=== PATIENT | female | born 1945 ===

== ENCOUNTER → 2017-07-10 | Outpatient (CLI) | payer MEDICARE, OTHER ==
[~2017-07-10] MED LIST: AMOX-559 PO; BENZ200C15 PO; CALC600T63 PO; CEPH-13 PO; CHOL200038 PO; CYAN500T38 PO; CYCL-277 PO; DICY20TA96 PO; DOXY-179 PO; FLU180SY9 IM; FURO-45 PO; GABA-549 PO; ISOS30TA54 PO; LISI-374 PO; LISI20TA29 PO; LOSA100T67 PO; LOSA50TA72 PO; LOVA20TA99 PO; METH4TAB66 PO; METO-257 PO; METO100T20 PO; MULT1TAB64 PO; NITR-1 PO; NYST15CR32 TP; NYST15PO4 TP; OMEP40CA48 PO; ONDA4TAB97 PO; OXYC-865 PO; PNEI IJ; PNEU0.5D3 IM; POTA-23 PO; SERT-173 PO; SPIR25TA78 PO; SPIR50TA31 PO; SULF-198 PO; TIZA-128 PO; TRAM-420 PO; TRAZ150T8 PO; VARI50KI IM; ZOST19404 SQ
[2017-07-10 14:47] LABS: PLATELET COUNT, AUTOMATED 320 K/uL (150-450)
[2017-07-10 14:49] LABS: INR 0.93
[2017-07-10 15:06] LABS: LDL CHOLESTEROL 80 mg/dl
== END ==
LOC: LAB 13:31
PROVIDERS: ATTEND Nurse Practitioner Family
DX: E78.5 Hyperlipidemia, unspecified (principal); I10 Essential (primary) hypertension; R74.8 Abnormal levels of other serum enzymes; D53.9 Nutritional anemia, unspecified; R30.0 Dysuria
CPT/HCPCS: 36415; 81001; 82040; 82247; 82310; 82374; 82435; 82465; 82565; 82947; 83718; 84075; 84132; 84155; 84295; 84443; 84450; 84460; 84478; 84520; 85025; 85610

== ENCOUNTER 2017-09-11 17:12 | Emergency (ER) | payer MEDICARE, OTHER ==
--- NOTE | 2017-09-11 17:27 | EKG ---
[place] [facility] [place]IENT NAME: FAVIAN BACON : [id number] MR: [id number] V: [id number] EXAM DATE: ORDERING PHYSICIAN: RUDDY ORTIZ TECHNOLOGIST: ELLYN Aguilar Reason : Blood Pressure : / mmHG Vent. Rate : 078 BPM Atrial Rate : 078 BPM P-R Int : 172 ms QRS Dur : 092 ms QT Int : 418 ms P-R-T Axes : 030 009 053 degrees QTc Int : 476 ms Normal sinus rhythm Inferior-posterior infarct (cited on or before 11-SEP-2017) Abnormal ECG When compared with ECG of 11-SEP-2017 15:08, lateral ST depression is now improved Confirmed by AMERICO VASQUEZ ([id number]) on 09/11/2017 8:44:02 PM Referred By: Confirmed By:AMERICO VASQUEZ
[2017-09-11] MEDS ORDERED: ASPIRIN 81 MG CHEW ONE (17:33)
[2017-09-11] MEDS ORDERED: ASPIRIN 81 MG CHEW PO ONE (17:35)
[2017-09-11 17:47] LABS: PLATELET COUNT, AUTOMATED 359 K/uL (150-450)
--- NOTE | 2017-09-11 17:47 | ER Report ---
History and Physical Time Seen By MD: 17:20 Hx. of Stated Complaint: ABNORMAL EKG, CP 6 DAYS, TODAY DENIES SYMPOMS EXCEPT DIZZINESS HPI/ROS CHIEF COMPLAINT: Chest pain. HISTORY OF PRESENT ILLNESS: Pt presents after having chest pain 5 d ago; states the pain was crushing, radiated to jaw, left arm, associated with significant difficulty breathing, lasted 3-4 hours at a time, and was relieved by rest. She states that the last episode of any discomfort was > 48 hours ago. She denies pain or shortness of breath, nausea, diaphoresis or other symptoms currently. Was sent here by clinic due to abnl ekg with inf elevations that has changed since 2016. She has not taken asa today. REVIEW OF SYSTEMS: Constitutional: No fever, no chills. Eyes: No discharge. ENT: No sore throat. Respiratory: As above. Cardiac: As above. Gastrointestinal: No abdominal pain, no vomiting. Genitourinary: No hematuria. Musculoskeletal: No back pain. Skin: No rashes. Neurological: No headache. Remainder of the 14 system rev: Yes Allergies: Coded Allergies: meperidine (Verified Allergy, Unknown, 05/20/16) vomit cephalexin (Verified Adverse Reaction, Mild, NAUSEA/VOMITING, 02/06/17) sulfamethoxazole (Verified Adverse Reaction, Unknown, NAUSEA/VOMITING, ) trimethoprim (Verified Adverse Reaction, Unknown, NAUSEA/VOMITING, ) Uncoded Allergies: [place] (Allergy, Unknown, NAUSEA/VOMITING, 07/29/14) Rapid Heart beat Home Meds Active Scripts Omeprazole (OMEPRAZOLE) 40 Mg Capsule.dr, 1 TAB PO QDAY, #90 CAP 1 Refill Prov:RUDDY ORTIZ APRN-C 09/11/17 Valacyclovir Hcl (VALACYCLOVIR) 1,000 Mg Tablet, 1 TAB PO TID, #30 TAB 0 Refills Prov:RUDDY ORTIZ APRN-C 09/11/17 Metoprolol Succinate (METOPROLOL SUCCINATE) 200 Mg Tab.er.24h, 1 TAB PO QDAY, # 90 TAB 0 Refills Prov:RUDDY ORTIZ APRNP-C 07/12/17 Pravastatin Sodium (PRAVASTATIN SODIUM) 20 Mg Tablet, 1 TAB PO QDAY, #90 TAB 0 Refills Prov:RUDDY ORTIZ APRN [facility] 07/12/17 Trazodone Hcl (TRAZODONE HCL) 150 Mg Tablet, 1 TAB PO QHS Y for INSOMNIA, #90 TAB 1 Refill Prov:RUDDY ORTIZ APRN [facility] 07/10/17 Isosorbide Mononitrate (ISOSORBIDE MONONITRATE ER) 30 Mg Tab.er.24h, 1 TAB PO DAILY, #90 TAB 1 Refill Prov:RUDDY ORTIZ APRTena JERRYP-C 07/10/17 Varicella-Zoster Ge/As01b/Pf (Shingrix Vial Kit) 50 Mcg/0.5 Ml Kit, 0.5 ML IM ONCE, #1 EACH 1 Refill Prov:RUDDY ORTIZ VANESSA JERRYP-C 07/10/17 Gabapentin (GABAPENTIN) 300 Mg Capsule, 1 TAB PO TID, #270 CAPSULE 1 Refill Prov:RUDDY ORTIZ VANESSA JERRYP-C 01/08/17 Reported Medications Calcium Carbonate (CALCIUM) 500 Mg Tablet, 500 MG PO 09/11/17 Multivitamin (MULTI VITAMIN DAILY) 1 Each Tablet, 1 TAB PO DAILY 07/29/14 Past Medical/Surgical History htn, chol fam hx of dm, acs no prior acs Reviewed Nurses Notes: Yes Smoking Status: Never Smoker Exposure to Second Hand Smoke?: No Hx Substance Use Disorder: No Hx Alcohol Use: Yes (pt admits to 1-3 drinks daily) Family History of: Diabetes, Cardiac Constitutional Vital Sign - Last 24 Hours 09/11/17 09/11/17 09/11/17 09/11/17 17:18 17:18 17:30 17:42 Temp 99.1 Pulse 80 76 Resp 16 B/P (MAP) 142/94 142/94 (110) 164/97 (119) Pulse Ox 93 93 O2 Delivery Room Air 09/11/17 09/11/17 09/11/17 09/11/17 18:00 18:12 18:30 18:42 Pulse 74 76 B/P (MAP) 155/88 (110) 153/92 (112) Pulse Ox 93 95 09/11/17 09/11/17 09/11/17 09/11/17 18:47 19:00 19:05 19:05 Pulse 75 75 75 B/P (MAP) 150/91 (110) Pulse Ox 96 95 95 09/11/17 09/11/17 09/11/17 09/11/17 19:49 19:49 19:50 20:00 Pulse 74 Resp 19 B/P (MAP) 143/121 (128) 143/121 (128) 145/87 (106) Pulse Ox 92 09/11/17 09/11/17 09/11/17 09/11/17 20:00 20:05 20:05 20:10 Pulse 70 70 71 Resp 14 14 15 B/P (MAP) 145/87 (106) Pulse Ox 97 97 98 Physical Exam General Appearance: [The patient is alert, has no immediate need for airway protection and no signs of toxicity.] [ ] Eyes: Pupils equal and round no pallor or injection. ENT, Mouth: Mucous membranes are moist. Respiratory: There are no retractions, lungs are clear to auscultation. Cardiovascular: Regular rate and rhythm. no m/r/g. No carotid bruits Gastrointestinal: Abdomen is soft and non tender, no masses, bowel sounds normal. Neurological: [ ] Skin: Warm and dry, no rashes. Of note, has paronychia that are draining on both l and r hand, without splinter hemorrhages, oslers nodes Musculoskeletal: Neck is supple non tender. Extremities are nontender, nonswollen and have full range of motion. [ ] DIFFERENTIAL DIAGNOSIS: After history and physical exam differential diagnosis was considered for chest pain including but not limited to myocardial ischemia, pericarditis pulmonary embolus, chest wall pain, pleural inflammation and pulmonary infectious causes, endocarditis, aortic dissection. High pretest prob for acs Medical Decision Making Data Points Result Diagram: 09/11/17 1730 09/11/17 1730 Laboratory Hematology Test 09/11/17 17:30 Red Blood Count 3.86 M/uL (4.17-5.56) Mean Corpuscular Volume 91.4 fL (80.0-96.0) Mean Corpuscular Hemoglobin 31.0 pg (26.0-33.0) Mean Corpuscular Hemoglobin Concent 33.9 g/dL (32.0-36.0) Red Cell Distribution Width 15.5 % (11.5-14.5) Mean Platelet Volume 7.4 fL (7.2-11.1) Neutrophils (%) (Auto) 72.0 % (39.4-72.5) Lymphocytes (%) (Auto) 18.7 % (17.6-49.6) Monocytes (%) (Auto) 4.8 % (4.1-12.4) Eosinophils (%) (Auto) 3.1 % (0.4-6.7) Basophils (%) (Auto) 1.4 % (0.3-1.4) Nucleated RBC Relative Count (auto) 0.0 /100WBC Neutrophils # (Auto) 6.0 K/uL (2.0-7.4) Lymphocytes # (Auto) 1.6 K/uL (1.3-3.6) Monocytes # (Auto) 0.4 K/uL (0.3-1.0) Eosinophils # (Auto) 0.3 K/uL (0.0-0.5) Basophils # (Auto) 0.1 K/uL (0.0-0.1) Nucleated RBC Absolute Count (auto) 0.00 K/uL Prothrombin Time 12.9 seconds (12.0-14.4) Prothromb Time International Ratio 0.97 Activated Partial Thromboplast Time 26 seconds (23-35) D-Dimer Quantitative (PE/DVT) 1.57 ug/ml (0-0.50) Sodium Level 131 mmol/L (137-145) Potassium Level 3.6 mmol/L (3.5-5.0) Chloride Level 95 mmol/L (98-107) Carbon Dioxide Level 24 mmol/L (22-31) Blood Urea Nitrogen 15 mg/dl (7-18) Creatinine 1.10 mg/dl (0.52-1.04) Glomerular Filtration Rate Calc 49.1 Random Glucose 92 mg/dl (75-110) Calcium Level 9.1 mg/dl (8.4-10.2) Total Bilirubin 0.3 mg/dl (0.2-1.3) Aspartate Amino Transf (AST/SGOT) 22 U/L (0-35) Alanine Aminotransferase (ALT/SGPT) 21 U/L (0-56) Alkaline Phosphatase 161 U/L (0-126) Troponin I 3.550 ng/ml B-Type Natriuretic Peptide 2020 pg/ml (0-100) Total Protein 7.5 g/dl (6.3-8.2) Albumin 3.7 g/dl (3.5-5.0) Chemistry Test 09/11/17 17:30 White Blood Count 8.3 k/uL (4.5-11.0) Red Blood Count 3.86 M/uL (4.17-5.56) Hemoglobin 12.0 g/dL (12.0-16.0) Hematocrit 35.3 % (34.0-47.0) Mean Corpuscular Volume 91.4 fL (80.0-96.0) Mean Corpuscular Hemoglobin 31.0 pg (26.0-33.0) Mean Corpuscular Hemoglobin Concent 33.9 g/dL (32.0-36.0) Red Cell Distribution Width 15.5 % (11.5-14.5) Platelet Count 359 K/uL (150-450) Mean Platelet Volume 7.4 fL (7.2-11.1) Neutrophils (%) (Auto) 72.0 % (39.4-72.5) Lymphocytes (%) (Auto) 18.7 % (17.6-49.6) Monocytes (%) (Auto) 4.8 % (4.1-12.4) Eosinophils (%) (Auto) 3.1 % (0.4-6.7) Basophils (%) (Auto) 1.4 % (0.3-1.4) Nucleated RBC Relative Count (auto) 0.0 /100WBC Neutrophils # (Auto) 6.0 K/uL (2.0-7.4) Lymphocytes # (Auto) 1.6 K/uL (1.3-3.6) Monocytes # (Auto) 0.4 K/uL (0.3-1.0) Eosinophils # (Auto) 0.3 K/uL (0.0-0.5) Basophils # (Auto) 0.1 K/uL (0.0-0.1) Nucleated RBC Absolute Count (auto) 0.00 K/uL Prothrombin Time 12.9 seconds (12.0-14.4) Prothromb Time International Ratio 0.97 Activated Partial Thromboplast Time 26 seconds (23-35) D-Dimer Quantitative (PE/DVT) 1.57 ug/ml (0-0.50) Glomerular Filtration Rate Calc 49.1 Calcium Level 9.1 mg/dl (8.4-10.2) Total Bilirubin 0.3 mg/dl (0.2-1.3) Aspartate Amino Transf (AST/SGOT) 22 U/L (0-35) Alanine Aminotransferase (ALT/SGPT) 21 U/L (0-56) Alkaline Phosphatase 161 U/L (0-126) Troponin I 3.550 ng/ml B-Type Natriuretic Peptide 2020 pg/ml (0-100) Total Protein 7.5 g/dl (6.3-8.2) Albumin 3.7 g/dl (3.5-5.0) Coagulation Test 09/11/17 17:30 Prothrombin Time 12.9 seconds Prothromb Time International Ratio 0.97 Activated Partial Thromboplast Time 26 seconds D-Dimer Quantitative (PE/DVT) 1.57 ug/ml Microbiology Microbiology Date/Time Source Procedure Growth Status 09/11/17 18:15 Blood Blood Culture - Preliminary NO GROWTH AFTER 1 DAY, REINCUBATED Resulted 09/11/17 18:11 Blood Blood Culture - Preliminary NO GROWTH AFTER 1 DAY, REINCUBATED Resulted EKG/Imaging EKG Interpretation 12 lead EKG: Rhythm: normal sinus rhythm rate 78 [place]: normal QRS: normal ST segments: st elevations iii, avf, < 1mm; st depressions 1/avl, t wave inversions t2-5 changed compared to 2016. No change compared to office ekg today [ ] Monitor Interpretation: Normal Sinus Rhythm Imaging X-ray: chest was obtained. I viewed the images myself on the PACS system. My interpretation of the images is: nacpd. The radiologist interpretation had no clinically significant variation from this interpretation. ED Course/Re-evaluation ED Course Initial hx and ekg concerning for acs without current symptoms so not indicated for emergent catheterization. Given dyspnea, will screen for pe, consider but doubt aortic dissection Will obtain trop, consult cardiology as appropriate and monitor for dev of symptoms. ASA adminsitered in ED; initiated heparin and [place] [facility] [place] and will plan for cath in AM unless pt develops chest pain/anginal symptoms or further dynamic changes. Pt aware of risks/benefits of transport and agrees to transport to cardiology. Re-evaluation Pt remains pain free throughout stay in ED Decision to Disposition Date: Sep 11, 2017 Decision to Disposition Time: 18:34 Critical Care Time I spent a total of 45 min of critical care time in obtaining history, performing a physical exam, bedside monitoring of interventions, collecting and interpreting tests and discussion with consultants but not including time spent performing procedures. Transfer Facility [facility]; accepting Dr. Guzmán (hosp)/ Felix ( literacy specialist) Depart Departure Latest Vital Signs Vital Signs Date Time Temp Pulse Resp B/P (MAP) Pulse Ox O2 Delivery O2 Flow Rate FiO2 09/11/17 20:10 71 15 98 09/11/17 20:00 145/87 (106) 09/11/17 17:18 99.1 Room Air Impression: Primary Impression: NSTEMI (non-ST elevated myocardial infarction) Condition: Condition Unchanged Disposition: XFER TO ACUTE CARE HOSPITAL Referrals: RUDDY ORTIZ APRN [facility] (PCP) SHAUN POPE MD Sep 11, 2017 17:47
[2017-09-11 18:00] LABS: INR 0.97
--- NOTE | 2017-09-11 18:12 | RADIOLOGY IMAGING REPORT ---
FACILITY: [facility] PATIENT NAME: Jenni Solorio : 1945 MR: [id number] V: [id number] EXAM DATE: ORDERING PHYSICIAN: SHAUN POPE TECHNOLOGIST: [place] [facility] [place] Patient: Jenni Solorio : 1945 Visit/Account:[id number] Date of Sevice: 09/11/2017 CHEST SINGLE AP HISTORY: Chest pain. COMPARISON: Chest x-ray March 29, 2015. FINDINGS: Cardiomediastinal contours: The heart is mildly enlarged. Lungs and pleura: Lung volumes are low, but there is no infiltrate. There is a calcified granulomata in the right upper lobe that is stable. Bones/soft tissues: There are bilateral pericapsular calcified breast implants. IMPRESSION: 1. Low lung volumes but no active disease in the chest. Old granulomatous disease as described above. Report Dictated By: Syed Serrano MD at 09/11/2017 6:07 PM Report E-Signed By: Syed Serrano MD at 09/11/2017 6:08 PM WSN:[id number]
[2017-09-11] MEDS ORDERED: TICAGRELOR 90 MG TABLET PO STA (18:24)
[2017-09-11] MEDS ORDERED: HEPARIN* SOD/D5W 25000 U/500ML 500 ML IV ONE (18:24)
[2017-09-11] MEDS ORDERED: HEPARIN (PORC) 5000 UN/ML VIAL IVP ONE (18:25)
[2017-09-11 20:00] VITALS: BP 145/87
== END 2017-09-11 20:30 | disposition short-term general hospital (02) ==
LOC: ER 17:25
DX: I21.4 Non-ST elevation (NSTEMI) myocardial infarction (principal)
CPT/HCPCS: 36415; 71045; 83880; 84484; 85025; 85379; 85610; 85730; 87040; 93005; 96361; 96374; 99291; A9270; J1644; 82040; 82247; 82310; 82374; 82435; 82565; 82947; 84075; 84132; 84155; 84295; 84450; 84460; 84520

== ENCOUNTER → 2017-09-11 | Outpatient (CLI) | payer MEDICARE, OTHER ==
[~2017-09-11] MED LIST changes: +CALC500T6 PO; +METO200T12 PO; +PRAV20TA66 PO; -SPIR25TA78 PO; +SPIR25TA80 PO; -SPIR50TA31 PO; +SPIR50TA33 PO; +VALA100059 PO
--- NOTE | 2017-09-11 17:30 | EKG ---
FACILITY: [facility] - [place] PATIENT NAME: FAVIAN BACON : [id number] MR: [id number] V: [id number] EXAM DATE: ORDERING PHYSICIAN: RUDDY ORTIZ TECHNOLOGIST: DANAE Aguilar Reason : CHEST PAIN Blood Pressure : / mmHG Vent. Rate : 071 BPM Atrial Rate : 071 BPM P-R Int : 166 ms QRS Dur : 094 ms QT Int : 420 ms P-R-T Axes : 046 011 088 degrees QTc Int : 456 ms Normal sinus rhythm Inferior-posterior infarct , age undetermined possibly new? ST and T wave abnormality, consider lateral ischemia Abnormal ECG When compared with ECG of 29-MAR-2015 09:37, Inferior-posterior infarct is now present ST now depressed in Anterolateral leads Nonspecific T wave abnormality now evident in Inferior leads T wave inversion more evident in Anterolateral leads Confirmed by EMILIO SAHNI ([id number]) on 09/12/2017 1:46:41 PM Referred By: ANGEL Confirmed By:EMILIO SAHNI
== END ==
LOC: LAB 16:02
PROVIDERS: ATTEND Nurse Practitioner Family
DX: Z02.9 Encounter for administrative examinations, unspecified (principal)

== ENCOUNTER → 2017-09-11 | Outpatient (CLI) | payer MEDICARE, OTHER | LOC: AMB 20:10 | PROVIDERS: ATTEND Nurse Practitioner | DX: I21.4 Non-ST elevation (NSTEMI) myocardial infarction (principal) | CPT/HCPCS: A0425; A0426 ==

== ENCOUNTER 2017-09-26 12:04 | Emergency (ER) | payer MEDICARE, OTHER ==
[~2017-09-26 12:04] MED LIST changes: +ASPI-1471 PO; +ATOR-1 PO; +CLOP75TA PO; +FAMO-67 PO; +LISI2.5T60 PO
[2017-09-26] MEDS ORDERED: ASPIRIN 81 MG CHEW PO ONE ×2 (12:25→12:35)
[2017-09-26] MEDS ORDERED: NITROGLYCERIN 0.4 MG SUBL SL ONE (12:25)
--- NOTE | 2017-09-26 12:27 | EKG ---
FAC[place] [facility] [place]IENT NAME: FAVIAN BACON : [id number] MR: [id number] V: [id number] EXAM DATE: ORDERING PHYSICIAN: MERLIN MARKHAM TECHNOLOGIST: ELLYN Aguilar Reason : CP Blood Pressure : / mmHG Vent. Rate : 087 BPM Atrial Rate : 087 BPM P-R Int : 130 ms QRS Dur : 082 ms QT Int : 404 ms P-R-T Axes : 028 004 -20 degrees QTc Int : 486 ms Normal sinus rhythm Inferior infarct (cited on or before 11-SEP-2017) T inversion consistent with inferior ischemia vs normal variant When compared with ECG of 11-SEP-2017 17:24, Nonspecific T wave abnormality has replaced inverted T waves in Anterior leads More pronounced T wave inversion noted today. Confirmed by AMERICO VASQUEZ ([id number]) on 09/26/2017 2:28:56 PM Referred By: RASHI Confirmed By:AMERICO VASQUEZ
--- NOTE | 2017-09-26 12:30 | ER Report ---
History and Physical Time Seen By MD: 12:20 Hx. of Stated Complaint: pt reports mi 2 weeks ago. states she started having numbness in L arm with stabbing pains in L chest with SOB HPI/ROS CHIEF COMPLAINT: Chest pain HISTORY OF PRESENT ILLNESS: Patient is a 8-year-old female comes emergency Department today with complaint of left arm pressure and sharp stabbing pain or chest patient had a acute myocardial infarction approximately 12-14 days prior to presentation when she was seen here transferred to an outside facility were 2 stents were placed patient describes that episode as a heaviness pressure or crushing sensation which is different than what she has today but the left arm sensation is similar patient also has been short of breath the last 3-4 days. Patient denies any abdominal pain nausea vomiting diarrhea fever chills patient spoke to her model maker fiberglass was advised not to take any medications that she received aspirin on arrival ACS protocol in place patient has no additional complaints noted REVIEW OF SYSTEMS: Respiratory: No cough, no dyspnea. Cardiovascular: Chest pain no palpitations Gastrointestinal: No vomiting, no abdominal pain. Musculoskeletal: No back pain. Remainder of the 14 system rev: Yes Allergies: Coded Allergies: meperidine (Verified Allergy, Unknown, 09/26/17) vomit cephalexin (Verified Adverse Reaction, Mild, NAUSEA/VOMITING, 09/26/17) sulfamethoxazole (Verified Adverse Reaction, Unknown, NAUSEA/VOMITING, 09/26) trimethoprim (Verified Adverse Reaction, Unknown, NAUSEA/VOMITING, 09/26/17) Uncoded Allergies: [place]in (Allergy, Unknown, NAUSEA/VOMITING, 07/29/14) Rapid Heart beat Home Meds Active Scripts Furosemide (FUROSEMIDE) 20 Mg Tablet, 1 TAB PO DAILY, #3 TAB 0 Refills Prov:RUDDY ORTIZ APRNP-C 09/21/17 Valacyclovir Hcl (VALACYCLOVIR) 1,000 Mg Tablet, 1 TAB PO TID, #30 TAB 0 Refills Prov:RUDDY ORTIZ APRNP-C 09/11/17 Metoprolol Succinate (METOPROLOL SUCCINATE) 200 Mg Tab.er.24h, 1 TAB PO QDAY, # 90 TAB 0 Refills Prov:RUDDY ORTIZ APRN DESULFURIZER HAND-C 07/12/17 Gabapentin (GABAPENTIN) 300 Mg Capsule, 1 TAB PO TID, #270 CAPSULE 1 Refill Prov:RUDDY ORTIZ APRN-C 01/08/17 Reported Medications Famotidine (FAMOTIDINE) 20 Mg Tablet, 1 TAB PO DAILY 09/21/17 Clopidogrel Bisulfate (CLOPIDOGREL) 75 Mg Tablet, 1 TAB PO QDAY, TAB 09/21/17 Lisinopril (LISINOPRIL) 2.5 Mg Tablet, 1 TAB PO QDAY 09/21/17 Atorvastatin Calcium (ATORVASTATIN CALCIUM) 80 Mg Tablet, 1 TAB PO QDAY, TAB 09/21/17 Aspirin (ASPIR 81) 81 Mg Tablet.dr, 1 TAB PO QDAY, TAB 09/21/17 Calcium Carbonate (CALCIUM) 500 Mg Tablet, 500 MG PO 09/11/17 Multivitamin (MULTI VITAMIN DAILY) 1 Each Tablet, 1 TAB PO DAILY 07/29/14 Discontinued Scripts Omeprazole (OMEPRAZOLE) 40 Mg Capsule.dr, 1 TAB PO QDAY, #90 CAP 1 Refill Prov:RUDDY ORTIZ APRN-Kat 09/11/17 Pravastatin Sodium (PRAVASTATIN SODIUM) 20 Mg Tablet, 1 TAB PO QDAY, #90 TAB 0 Refills Prov:RUDDY ORTIZ APRN-Kat 07/12/17 Trazodone Hcl (TRAZODONE HCL) 150 Mg Tablet, 1 TAB PO QHS Y for INSOMNIA, #90 TAB 1 Refill Prov:RUDDY ORTIZ APRN-Kat 07/10/17 Isosorbide Mononitrate (ISOSORBIDE MONONITRATE ER) 30 Mg Tab.er.24h, 1 TAB PO DAILY, #90 TAB 1 Refill Prov:RUDDY ORTIZ APRN-Kat 07/10/17 Varicella-Zoster Ge/As01b/Pf (Shingrix Vial Kit) 50 Mcg/0.5 Ml Kit, 0.5 ML IM ONCE, #1 EACH 1 Refill Prov:RUDDY ORTIZ APRN-Kat 07/10/17 Reviewed Nurses Notes: Yes Old Medical Records Reviewed: Yes Smoking Status: Never Smoker Exposure to Second Hand Smoke?: No Hx Substance Use Disorder: No Hx Alcohol Use: Yes (pt admits to 1-3 drinks daily) Constitutional Vital Sign - Last 24 Hours 09/26/17 09/26/17 09/26/17 09/26/17 12:07 12:15 12:19 12:39 Temp 97.6 Pulse 92 87 Resp 16 36 B/P (MAP) 186/87 186/87 (120) 168/84 (112) Pulse Ox 95 96 O2 Delivery Room Air 09/26/17 09/26/17 09/26/17 09/26/17 12:44 12:47 12:49 12:54 Pulse 98 88 91 Resp 22 24 18 B/P (MAP) 121/76 (91) 128/78 (95) Pulse Ox 91 92 90 09/26/17 09/26/17 09/26/17 09/26/17 12:59 13:00 13:02 13:04 Pulse 90 84 Resp 24 25 B/P (MAP) 90/60 (70) 140/77 (98) Pulse Ox 91 91 09/26/17 09/26/17 09/26/17 09/26/17 13:09 13:24 13:30 13:39 Pulse 81 85 79 Resp 18 29 15 B/P (MAP) 160/95 (116) Pulse Ox 92 93 94 09/26/17 09/26/17 09/26/17 09/26/17 13:44 13:59 14:00 14:14 Pulse 79 86 83 Resp 16 23 18 B/P (MAP) 142/85 (104) Pulse Ox 93 92 92 09/26/17 14:30 B/P (MAP) 154/86 (108) Physical Exam General Appearance: The patient is alert, has no immediate need for airway protection and no current signs of toxicity. [ ] Eyes: Pupils equal and round no injection. Respiratory: Chest is non tender, lungs are clear to auscultation. Cardiac: regular rate and rhythm [ ] Gastrointestinal: Abdomen is soft and non tender, no masses, bowel sounds normal. Musculoskeletal: Neck: Neck is supple and non tender. Extremities have full range of motion and are non tender. Skin: No rashes or lesions. [ ] DIFFERENTIAL DIAGNOSIS: After history and physical exam differential diagnosis was considered for acute myocardial infarction acute coronary syndrome stent abnormality or dissection Medical Decision Making Data Points Result Diagram: 09/26/17 1215 09/26/17 1215 Laboratory Hematology Test 09/26/17 12:15 Red Blood Count 3.79 M/uL (4.17-5.56) Mean Corpuscular Volume 92.7 fL (80.0-96.0) Mean Corpuscular Hemoglobin 31.7 pg (26.0-33.0) Mean Corpuscular Hemoglobin Concent 34.1 g/dL (32.0-36.0) Red Cell Distribution Width 16.9 % (11.5-14.5) Mean Platelet Volume 7.6 fL (7.2-11.1) Neutrophils (%) (Auto) 71.1 % (39.4-72.5) Lymphocytes (%) (Auto) 18.3 % (17.6-49.6) Monocytes (%) (Auto) 5.5 % (4.1-12.4) Eosinophils (%) (Auto) 4.0 % (0.4-6.7) Basophils (%) (Auto) 1.1 % (0.3-1.4) Nucleated RBC Relative Count (auto) 0.1 /100WBC Neutrophils # (Auto) 5.3 K/uL (2.0-7.4) Lymphocytes # (Auto) 1.4 K/uL (1.3-3.6) Monocytes # (Auto) 0.4 K/uL (0.3-1.0) Eosinophils # (Auto) 0.3 K/uL (0.0-0.5) Basophils # (Auto) 0.1 K/uL (0.0-0.1) Nucleated RBC Absolute Count (auto) 0.01 K/uL D-Dimer Quantitative (PE/DVT) 1.13 ug/ml (0-0.50) Sodium Level 136 mmol/L (137-145) Potassium Level 3.6 mmol/L (3.5-5.0) Chloride Level 97 mmol/L (98-107) Carbon Dioxide Level 27 mmol/L (22-31) Blood Urea Nitrogen 7 mg/dl (7-18) Creatinine 0.80 mg/dl (0.52-1.04) Glomerular Filtration Rate Calc > 60.0 Random Glucose 107 mg/dl (75-110) Calcium Level 8.7 mg/dl (8.4-10.2) Total Bilirubin 0.7 mg/dl (0.2-1.3) Aspartate Amino Transf (AST/SGOT) 33 U/L (0-35) Alanine Aminotransferase (ALT/SGPT) 22 U/L (0-56) Alkaline Phosphatase 171 U/L (0-126) Troponin I 0.069 ng/ml Total Protein 7.9 g/dl (6.3-8.2) Albumin 4.0 g/dl (3.5-5.0) Chemistry Test 09/26/17 12:15 White Blood Count 7.5 k/uL (4.5-11.0) Red Blood Count 3.79 M/uL (4.17-5.56) Hemoglobin 12.0 g/dL (12.0-16.0) Hematocrit 35.1 % (34.0-47.0) Mean Corpuscular Volume 92.7 fL (80.0-96.0) Mean Corpuscular Hemoglobin 31.7 pg (26.0-33.0) Mean Corpuscular Hemoglobin Concent 34.1 g/dL (32.0-36.0) Red Cell Distribution Width 16.9 % (11.5-14.5) Platelet Count 318 K/uL (150-450) Mean Platelet Volume 7.6 fL (7.2-11.1) Neutrophils (%) (Auto) 71.1 % (39.4-72.5) Lymphocytes (%) (Auto) 18.3 % (17.6-49.6) Monocytes (%) (Auto) 5.5 % (4.1-12.4) Eosinophils (%) (Auto) 4.0 % (0.4-6.7) Basophils (%) (Auto) 1.1 % (0.3-1.4) Nucleated RBC Relative Count (auto) 0.1 /100WBC Neutrophils # (Auto) 5.3 K/uL (2.0-7.4) Lymphocytes # (Auto) 1.4 K/uL (1.3-3.6) Monocytes # (Auto) 0.4 K/uL (0.3-1.0) Eosinophils # (Auto) 0.3 K/uL (0.0-0.5) Basophils # (Auto) 0.1 K/uL (0.0-0.1) Nucleated RBC Absolute Count (auto) 0.01 K/uL D-Dimer Quantitative (PE/DVT) 1.13 ug/ml (0-0.50) Glomerular Filtration Rate Calc > 60.0 Calcium Level 8.7 mg/dl (8.4-10.2) Total Bilirubin 0.7 mg/dl (0.2-1.3) Aspartate Amino Transf (AST/SGOT) 33 U/L (0-35) Alanine Aminotransferase (ALT/SGPT) 22 U/L (0-56) Alkaline Phosphatase 171 U/L (0-126) Troponin I 0.069 ng/ml Total Protein 7.9 g/dl (6.3-8.2) Albumin 4.0 g/dl (3.5-5.0) Coagulation Test 09/26/17 12:15 D-Dimer Quantitative (PE/DVT) 1.13 ug/ml ED Course/Re-evaluation ED Course 71-year-old female status post 2 stents placed comes emergency by some left arm discomfort and some pleuritic chest pain cardiac enzymes are negative EKG is unremarkable chest x-ray shows nothing focal CT angiogram status post elevated d -dimer showed stones, gallbladder follow-up ultrasounds to smoke on otherwise unremarkable patient is completely pain-free ultrasound at bedside does show again a couple stones but nothing abnormal follow-up with primary care Decision to Disposition Date: Sep 26, 2017 Decision to Disposition Time: 16:42 Depart Departure Latest Vital Signs Vital Signs Date Time Temp Pulse Resp B/P (MAP) Pulse Ox O2 Delivery O2 Flow Rate FiO2 09/26/17 14:30 154/86 (108) 09/26/17 14:14 83 18 92 09/26/17 12:07 97.6 Room Air Impression: Primary Impression: Gallstones Condition: Improved Disposition: HOME OR SELF-CARE Referrals: RUDDY ORTIZ APRN DESULFURIZER HAND-C (PCP) 5 Days Patient Instructions: Gallstones (DC) MERLIN MARKHAM MD Sep 26, 2017 12:30
[2017-09-26 12:33] LABS: PLATELET COUNT, AUTOMATED 318 K/uL (150-450)
--- NOTE | 2017-09-26 13:32 | RADIOLOGY IMAGING REPORT ---
FACILITY: [facility] PATIENT NAME: Jenni Solorio : 1945 MR: [id number] V: [id number] EXAM DATE: ORDERING PHYSICIAN: MERLIN MARKHAM TECHNOLOGIST: Location: [facility] [place] Patient: Jenni Solorio : 1945 Visit/Account:[id number] Date of Sevice: 09/26/2017 Exam type: CHEST PA AND LAT History: cp Comparison: September 11, 2017. And March 29, 2015 Findings: The lungs are free of acute effusions, infiltrates or edema. Small calcified nodule lateral aspect r ight upper lobe is unchanged. The cardiac silhouette is normal in size. Partially calcified left br east prosthesis noted. There are moderate spondylotic changes of the thoracic spine and a moderate c ompression fracture of the lower thoracic vertebral body new since 2015 IMPRESSION: 1. No acute cardiac pulmonary process is seen Moderate compression fracture lower thoracic vertebral body new since 2015 Report Dictated By: Stormy Berman MD at 09/26/2017 1:26 PM Report E-Signed By: Stormy Berman MD at 09/26/2017 1:29 PM WSN:[email or web address]
[2017-09-26] MEDS ORDERED: IOPAMIDOL 76% 75 ML INFUS BTL 75 ML ONE (14:29)
[2017-09-26] MEDS ORDERED: NS 0.9% 25 ML BAG 50 ML ONE (14:30)
--- NOTE | 2017-09-26 15:23 | RADIOLOGY IMAGING REPORT ---
[place] [facility] [place] NAME: Jenni Solorio : 1945 MR: [id number] V: [id number] EXAM DATE: ORDERING PHYSICIAN: MERLIN MARKHAM TECHNOLOGIST: Location: [facility] [place] Patient: Jenni Solorio : 1945 Visit/Account:[id number] Date of Sevice: 09/26/2017 EXAMINATION: CT CHEST PULMONARY ANGIOGRAM COMPARISON: None available HISTORY: Shortness of breath. PROCEDURE: Pulmonary arterial phase imaging of the chest with 75 mL intravenous Isovue 370. Reconstru ction of the source data set includes multiplanar 2D in the sagittal and coronal planes, and 3D recon structed coronal slab MIP series. One of the following dose optimization techniques was utilized in the performance of this exam: Autom ated exposure control; adjustment of the mA and/or kV according to the patient's size; or use of an i terative reconstruction technique. Specific details can be referenced in the facility's radiology C T exam operational policy. FINDINGS: Pulmonary vasculature: There is good contrast opacification of the pulmonary arterial system. No pul monary embolism. Main pulmonary artery size is normal. Cardiac and mediastinum: Cardiac chamber size is normal. 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 No pericardial effusion. Advanced coronary calcifications. No thoracic aortic aneurysm. No thora cic lymph node enlargement. Visualized thyroid is unremarkable. Lungs and pleura: Right upper lobe calcified granuloma. No consolidation or suspicious nodule. No pne umothorax, edema, or effusion. Airways: Negative. Upper abdomen: Tiny calcified gallstones. No acute findings. Osseous structures: T11 superior endplate age-indeterminate compression. Other: Bilateral breast augmentation. IMPRESSION: 1. No pulmonary embolism or evidence of acute cardiopulmonary disease. 2. T12 superior endplate age-indeterminate compression fracture. Correlation with any history of acut e thoracolumbar junction pain is recommended. 3. Cholelithiasis. 4. Advanced coronary calcifications. Report Dictated By: Cl Newman MD at 09/26/2017 3:12 PM Report E-Signed By: Cl Newman MD at 09/26/2017 3:20 PM WSN:[email or web address]
--- NOTE | 2017-09-26 17:10 | RADIOLOGY IMAGING REPORT ---
FACILITY: [facility] PATIENT NAME: Jenni Solorio : 1945 MR: [id number] V: [id number] EXAM DATE: ORDERING PHYSICIAN: MERLIN MARKHAM TECHNOLOGIST: [place] [facility] [place]: Jenni Solorio : 1945 Visit/Account:[id number] Date of Sevice: 09/26/2017 GALLBLADDER HISTORY: pain COMPARISON: CTA chest September 26, 2017 and liver ultrasound January 18, 2017 FINDINGS: Gallbladder: Small shadowing stones are seen within the gallbladder. There is no evidence of gallbla dder wall thickening. Liver: There is a 2 x 2 x 2.1 cm hypoechoic mass right lobe the liver. This has been shown to repres ent a hemangioma on a prior MRI. On the prior liver ultrasound this mass measured 2.1 x 2.3 x 2.3 cm Common duct: Normal, 6.7 mm diameter. Pancreas: Partially obscured by bowel, visualized aspects unremarkable. Right kidney: The right kidney contains multiple small cysts. The right kidney measures 10.1 cm in l ength Upper abdominal aorta and IVC: Patent. Ascites: None visualized. IMPRESSION: Cholelithiasis although no evidence of gallbladder wall thickening or common duct dilatation 2 x 2 x 2.1 cm hypoechoic mass right lobe of the liver which has previously been demonstrated represe nt a hemangioma by MRI Small right renal cysts Report Dictated By: Stormy Berman MD at 09/26/2017 5:01 PM Report E-Signed By: Stormy Berman MD at 09/26/2017 5:07 PM WSN:[email or web address]
[2017-09-26 17:30] VITALS: BP 180/102
== END 2017-09-26 17:33 | disposition home or self-care (01) ==
LOC: ER 12:10
DX: K80.80 Other cholelithiasis without obstruction (principal); I25.2 Old myocardial infarction
CPT/HCPCS: 71046; 71275; 76705; 84484; 85025; 85379; 93005; 99284; A9270; Q9967; 82040; 82247; 82310; 82374; 82435; 82565; 82947; 84075; 84132; 84155; 84295; 84450; 84460; 84520

== ENCOUNTER 2017-12-10 15:00 | Outpatient (RCR) | payer MEDICARE, OTHER ==
[2017-09-21 15:47] VITALS: BP 138/98
[2017-09-21 15:48] VITALS: BP 138/100
--- NOTE | 2017-09-21 16:02 | CARDIAC REHAB PLAN OF CARE ---
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 She has metal supports in her right leg and walks with a cane. She also has a history of high cholesterol and hypertension. Over the next month our goals will be to gradually start to increase exercise tolerance. We will start with a total of 20 minutes of exercise (10 minutes on the recumbant bike, and 10 minutes on the NuStep). The patient's HR range will be between 95-105bpm pending her BP remains below 165/90 and SPO2 remains above 88%. Our goal will be to gradually increase total exercise time to 150min /week aiming for at lesat 45 minutes total per session. Our other goal will be to encourage dietary change through nutrition education. Her main nutrition goal will be to limit carbohydrates via eliminating white flour and white sugar (primarily through sugar additives and alcohol). 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 The patient will begin at a HR intensity between 95-105bpm and our goal will be to gradually increase this aiming for 120bpm by the end of the program. Her MET goal right now is 2.4METs on both the NuStep and recumbent bike. We will aim to be up to 4.0METs by the end of the program. Half-Way Goals Met: Half-Way Goals Not Met Due To: PATIENT'S GOALS Patient Goals Due Date: 10/22/17 Patient Goals: Patient's individual goals include to become more active on a daily basis during her leisure activity and to lose 50lbs (currently weighs 180 , would like to weigh 130lbs). She is aware that that is not a healthy amount to lose in such a short time period, but is willing to learn the behavior habits to help progress towards that goal. Patient Goals Met: Patient Goals Not Met Due To: Cardiac Rehabilitation Plan of Care Comment: As a cardiac rehabilitation staff our goal will be to support the patient through positive encouragement, education, and social support. We will monitor her during her exercise sessions via BP, HR, SPO2, and ECG telemetry. We will use this information to develop an individualized care plan that fits her individual goals and needs. DARVIN
[2017-09-24 16:18] VITALS: BP 142/74
[2017-09-24 16:19] VITALS: BP 130/84
[2017-10-01 16:44] VITALS: BP 120/80
[2017-10-01 16:49] VITALS: BP 124/88
[2017-10-08 16:27] VITALS: BP 120/82
[2017-10-08 16:28] VITALS: BP 132/80
[2017-10-12 16:42] VITALS: BP 130/81
[2017-10-12 16:44] VITALS: BP 112/70
[2017-10-17 17:05] VITALS: BP 120/80
[2017-10-17 17:06] VITALS: BP 110/70
--- NOTE | 2017-10-24 12:11 | CARDIAC REHAB PLAN OF CARE ---
Physician: Claudia Patient is being seen: Radha Marrero Medical Diagnosis: NSTEMI; STENT x 2 Date of Onset: 09/12/17 Date of Initial Evaluation: 09/21/17 Date patient was last seen: 10/17/17 Number of treatments: 6 Number of cancellations/No Shows:6 INTERVENTIONS: SHORT TERM GOALS Short Term Goals Due Date: 11/23/17 Short Term Goals: Patient comes to cardiac rehabilitation following a NSTEMI and stent placement x2 in the [facility]. She has metal supports in her right leg and walks with a cane. She also has a history of high cholesterol and hypertension. Over the next month our primary goal will be to encourage consistent attended in the CR exercise sessions so as to help create and promote behavior change and help achieve the recommended 150min/week of moderate intensity exercise. During the sessions that she does attend she does achieve adequate exercise duration (~40-45 min/session) so now we will encourage increasing intensity. It is our goal to have her exercising on average at 3.5-4.5 METs by the end of the next month. Her HR range will be 95-110 pending her BP has a normal and safe exercise response. Our other goal will be to encourage dietary change through nutrition education. Her main nutrition goal will be to limit carbohydrates via eliminating white flour and white sugar (primarily through sugar additives and alcohol). Short Term Goals Met: Patient has achieved many of her previous goals. She has gradually increased her exercise duration--with her previous 3 sessions being approximately 43 min on average. During these session she has regularly maintained exercise at the prescribed intensity with her HR ranging between 93- 105bpm on average and a self reported RPE of 3-4 and MET level between 2-3.5. Short Term Goals Not Met Due To: Patient has attended few sessions of the available she has had this past month (6 total session attended out of 12 available). She did have some medical issues that prohibited her from attending--specifically pain from gallstones and some mild reported chest pain. This has prevented her form achieving the goal of 150 min/week of exercise. With more consistent attendance to CR, this goal should be easily attained by her next evaluation. No information pertaining to diet--we will follow up with the patient about dietary changes and education. RETIREMENT GOALS Grocery Specialist Goal Due Date: 11/23/17 Grocery Specialist Goals: long term goals include increasing exercise tolerance via total duration and intensity. The patient will begin at a HR intensity between 95- 105bpm and our goal will be to gradually increase this aiming for 120bpm by the end of the program. Her MET goal right now is 2.4METs on both the NuStep and recumbent bike. We will aim to be up to 4.0METs by the end of the program. Grocery Specialist Goals Met: Grocery Specialist Goals Not Met Due To: PATIENT'S GOALS Patient Goals Due Date: 11/23/17 Patient Goals: Patient's individual goals include to become more active on a daily basis during her leisure activity and to lose 50lbs (currently weighs 180, would like to weigh 130lbs). She is aware that that is not a healthy amount to lose in such a short time period, but is willing to learn the behavior habits to help progress towards that goal. Patient Goals Met: Unaware of any progress made towards personal patient goals. Will follow up with further information. Patient Goals Not Met Due To: Cardiac Rehabilitation Plan of Care Comment: Over the next month our primary goal will be to become more socially involved with the patient. Hopefully this connection will help instill a desire and self motivation for the patient to attend rehab more consistently as well as give us as care providers the opprotunity to ask more question and provide information. Our primary questions and educational points will pertain to dietary behavior change and leisure time activity at home. With her exercise sessions we will continue to encourage the duration she is currently at, as well as increase intensity and consistency. We will continue to monitor her vitals via BP, HR, SPO2, and ECG telemetry. We will use this information to create an exercise progression protocol that is individualized the to patient personal needs and goals. DARVIN
[2017-11-12 16:37] VITALS: BP 110/80
[2017-11-12 16:39] VITALS: BP 122/88
--- NOTE | 2017-11-14 12:44 | CARDIAC REHAB PLAN OF CARE ---
Physician: Herrera Rosales MD Patient is being seen: Radha Marrero Medical Diagnosis: NSTEMI, PTCA x 2 Date of Onset: 09/12/17 Date of Initial Evaluation: 09/21/17 Date patient was last seen: 11/12/17 Number of treatments: 7 Number of cancellations/No Shows: 14 INTERVENTIONS: SHORT TERM GOALS Short Term Goals Due Date: 12/14/17 Short Term Goals: Patient comes to cardiac rehabilitation following a NSTEMI and stent placement x2 in the [employer]. She has metal supports in her right leg and walks with a cane. She also has a history of high cholesterol and hypertension. Patient has been absent for the past month from CR. This new care plan will be restarting her exercise prescription from Day 1 as she has deconditioned in the time she has been gone. Our primary short term goal will be to encourage regular exercise attendance and consistency. This will hopefully help regulate her system and encourage behavior change development. We will aim for the patient attending all 3 sessions per week (MWF). During these sessions we will begin with 25 minutes of total exercise on either the recumbent bike or the NuStep. Her THR range will be between 85-95bpm so as to help her ease back into regular physical activity. We will also keep her intensity low to begin with--nothing higher than 2.5METs for the first week. Our other goal will be to encourage dietary change through nutrition education. Her main nutrition goal will be to limit carbohydrates via eliminating white flour and white sugar (primarily through sugar additives and alcohol). Short Term Goals Met: From her previous care plan no goals were met. Short Term Goals Not Met Due To: Previously set goal were not met due to her absence and no class attendance. ASSOCIATE PROFESSOR OF MATHEMATICS GOALS Sock Mender Goal Due Date: 12/14/17 Jail Goals: [facility] goals for exercise include increasing total duration and intensity of her exercise routine. By the end of the program we hope to have the patient exercising for at least 45 minutes on average per session. This exercise should also be done at a moderate intensity with an end MET goal between 4-6 METs and a THR goal between 100-110 on average. Jail Goals Met: No previous superintendent container terminal goals were met. Jail Goals Not Met Due To: Previously set goal were not met due to her absence and no class attendance. PATIENT'S GOALS Patient Goals Due Date: 12/14/17 Patient Goals: Patient's individual goals include to become more active on a daily basis during her leisure activity and to lose 50lbs (currently weighs 180, would like to weigh 130lbs). She is aware that that is not a healthy amount to lose in such a short time period, but is willing to learn the behavior habits to help progress towards that goal Patient Goals Met: No previous goals have been met. Patient Goals Not Met Due To: Patient reports not feeling well for most of the time she was absent from CR. Knowing this is it assumed that she remained sedentary for the majority of the past month. Cardiac Rehabilitation Plan of Care Comment: Our primary goal as a cardiac rehab team is to create a fun, safe, and supportive exercise environment for the patient. We want this to be a place and activity she looks forward to attending so as to encourage regular attendance. During her exercise sessions we will continue to monitor her vitals including HR, BP, SPO2, and ECG to as to ensure her safety during exercise. We will use this information to help track her progress and create and individualized exercise prescription. Physician Signature: Date: MTDD
[2017-11-19 16:19] VITALS: BP_SYST 132; BP_DIAS 84; BP_DIAS 86
[~2017-12-10 15:00] MED LIST changes: -LOSA100T67 PO; +LOSA100T69 PO; -LOSA50TA72 PO; +LOSA50TA74 PO
[2017-12-10 16:44] VITALS: BP 108/86
[2017-12-10 16:45] VITALS: BP 130/78
== END 2017-12-10 18:00 | disposition home or self-care (01) ==
LOC: CARD 15:00
PROVIDERS: ATTEND Internal Medicine Interventional Cardiology
DX: Z98.61 Coronary angioplasty status (principal); G62.9 Polyneuropathy, unspecified; I25.10 Atherosclerotic heart disease of native coronary artery without angina pectoris; I25.2 Old myocardial infarction; I10 Essential (primary) hypertension
CPT/HCPCS: 93798

== ENCOUNTER → 2017-12-27 | Outpatient (CLI) | payer MEDICARE, OTHER ==
[~2017-12-27] MED LIST changes: +ATOR40TA69 PO; +FLU180SY11 IM; +PNEI IM
[2017-12-27 17:02] LABS: PLATELET COUNT, AUTOMATED 204 K/uL (150-450)
[2017-12-27 17:05] LABS: LDL CHOLESTEROL 22 mg/dl
== END ==
LOC: LAB 16:22
PROVIDERS: ATTEND Nurse Practitioner Family
DX: E78.5 Hyperlipidemia, unspecified (principal); E87.1 Hypo-osmolality and hyponatremia; D53.9 Nutritional anemia, unspecified; R74.8 Abnormal levels of other serum enzymes; I10 Essential (primary) hypertension
CPT/HCPCS: 36415; 82040; 82247; 82310; 82374; 82435; 82465; 82565; 82947; 83718; 84075; 84132; 84155; 84295; 84443; 84450; 84460; 84478; 84520; 85025

== ENCOUNTER → 2018-02-26 | Outpatient (CLI) | payer MEDICARE, OTHER ==
[~2018-02-26] MED LIST changes: -LOSA100T69 PO; +LOSA100T75 PO; -LOSA50TA74 PO; +LOSA50TA80 PO
[2018-02-26 16:35] LABS: LDL CHOLESTEROL 44 mg/dl
--- NOTE | 2018-02-26 17:20 | RADIOLOGY IMAGING REPORT ---
FACILITY: [facility] PATIENT NAME: Jenni Solorio : 1945 MR: [id number] V: [id number] EXAM DATE: ORDERING PHYSICIAN: RUDDY ORTIZ TECHNOLOGIST: Location: [facility] Patient: Jenni Solorio : 1945 Visit/Account:[id number] Date of Sevice: 02/26/2018 HAND COMPLETE RIGHT HISTORY: Pain in right hand. Bone mass. COMPARISON: None. FINDINGS: 3 views were obtained of the right hand. There is marked osteopenia. There is severe narrowing of the DIP joints of the second through fifth digits. There are large hypertrophic osteophytes at the DIP joints of the second third and fourth di gits with associated soft tissue swelling. Possible erosive changes present in the DIP joint of the fourth digit possibility of an erosive osteoarthritis. There is mild narrowing of the PIP joints as well as the first IP joint without significant osteophyte formation. MCP joints are mildly narrowed without significant osteophytes or evidence of erosions. Severe degenerative changes present in the first carpal metacarpal joint as well as the triscaphe art iculation. Radiocarpal joint is also narrowed. There is calcification of the triangular fibrocartil age. No evidence of acute fracture or subluxation. IMPRESSION: 1. Multifocal degenerative changes which appears to be most significant in the second through fourth DIP joints. Possible erosive changes of the fourth DIP joint, please see above comments. There are also severe changes of the first carpal metacarpal joint and triscaphe articulation. 2. Marked osteopenia. 3. No evidence of acute osseous abnormality. 4. Calcification of the triangular fibrocartilage. Report Dictated By: Ronda Saxena MD at 02/26/2018 5:13 PM Report E-Signed By: Ronda Saxena MD at 02/26/2018 5:17 PM WSN:[email or web address]
--- NOTE | 2018-02-26 17:25 | RADIOLOGY IMAGING REPORT ---
FACILITY: [facility] PATIENT NAME: Jenni Solorio : 1945 MR: [id number] V: [id number] EXAM DATE: ORDERING PHYSICIAN: RUDDY ORTIZ TECHNOLOGIST: Location: [facility] [place] Patient: Jenni Solorio : 1945 Visit/Account:[id number] Date of Sevice: 02/26/2018 ANKLE 2 VIEW RIGHT HISTORY: Pain in right hand and ankle. Bone mass. ADDITIONAL HISTORY: None. COMPARISON: 03/22/2015 FINDINGS: 2 views were obtained of the right ankle. Since prior study, patient is undergone ORIF of the fractu res of the distal tibia and fibula. Fractures appear well-healed. Intramedullary chelita with anchoring screws present in the distal tibia. There is mild deformity of the distal tibia and fibula consiste nt with prior fracture. Ankle mortise is grossly intact. Talonavicular and calcaneocuboid articulat ions are within normal limits. Subtalar joint is unremarkable. Small plantar and posterior calcanea l spurs are present. Bones are osteopenic. IMPRESSION: 1. Postsurgical changes in the distal tibia. There is no evidence of hardware failure. Fracture ap pears well-healed. 2. Mild deformity of the distal fibula consistent with a healed fracture. 3. No evidence of acute osseous abnormality. Report Dictated By: Ronda Saxena MD at 02/26/2018 5:17 PM Report E-Signed By: Ronda Saxena MD at 02/26/2018 5:19 PM WSN:[id number]
--- NOTE | 2018-02-26 17:31 | RADIOLOGY IMAGING REPORT ---
FACILITY: [facility] [place] PATIENT NAME: eJnni Solorio : 1945 MR: [id number] V: [id number] EXAM DATE: ORDERING PHYSICIAN: RUDDY ORTIZ TECHNOLOGIST: Location: [facility] Patient: Jenni Solorio : 1945 Visit/Account:[id number] Date of Sevice: 02/26/2018 DEXA Scan Clinical history: Asymptomatic postmenopausal state. Comparison: DEXA scan from 05/24/2015. LUMBAR SPINE: The bone mineral density (BMD) measured from L1-L4 correlates with a Z-score of -0.3 and a T-score of -1.7 which is osteopenia as defined by the World Health Organization. The corresponding risk of fra cture in the lumbar spine is 3-4 times increased compared with a young adult reference population. T his value has decrease by 2.2 % since the prior study. More than 5% change is considered significant . HIP: Bone mineral density (BMD) measured in the LEFT total hip region correlates with a Z-score -2.2 and a T-score of -3.6 which is osteoporosis as defined by the World Health Organization. The correspondin g risk of fracture in the hip is 12-16 times increased compared to a young adult reference population . This value has decrease by 12.2 % since the prior study. More than 5% change is considered signifi cant. T score left femoral neck -3.2 Bone mineral density (BMD) measured in the Femoral Neck region measures 0.589 g/cm?. IMPRESSION: 1. Lumbar spine: Osteopenia. There has been 2.2% decrease in the bone mineral density since the pre vious exam. 2. Left Total Hip: Osteoporosis. There has been 12.2% decrease in the bone mineral density since previous exam. 3. Femoral Neck: Bone Mineral Density is 0.589 g/cm? The next DEXA scan of this patient should include the following sites: L1-L4 and the left hip. FRAX? WHO Fracture Risk Assessment Tool link: <http://www.shef.ac.uk/FRAX/tool.jsp?locationValue=9> PLEASE NOTE: 1) The World Health Organization defines low BMD as follows: T-score Normal > -1 Osteopenia < -1 and > -2.5 Osteoporosis < -2.5 without fractures Established osteoporosis < -2.5 with fractures 2) In general, you may wish to consider: Diagnosis Treatment Follow-up DEXA Normal BMD Prevention 2-3 years Osteopenia Prevention/therapy 1-2 years Osteoporosis Therapy Yearly 3) Fracture risk estimated from the T-score is more accurate for vertebral fractures (often spontane ous) than for hip fractures. Report Dictated By: Stormy Berman MD at 02/26/2018 5:25 PM Report E-Signed By: Stormy Berman MD at 02/26/2018 5:27 PM WSN:[id number]
== END ==
LOC: RAD 02-20 02:50
PROVIDERS: ATTEND Nurse Practitioner Family
DX: E78.5 Hyperlipidemia, unspecified (principal); R74.8 Abnormal levels of other serum enzymes; M89.9 Disorder of bone, unspecified; M85.80 Other specified disorders of bone density and structure, unspecified site; M81.0 Age-related osteoporosis without current pathological fracture
CPT/HCPCS: 36415; 77080; 82040; 82247; 82310; 82374; 82435; 82465; 82565; 82947; 83718; 84075; 84132; 84155; 84295; 84450; 84460; 84478; 84520

== ENCOUNTER → 2018-04-03 | Outpatient (CLI) | payer MEDICARE, OTHER ==
[~2018-04-03] MED LIST changes: +REGADENOSON 0.4 MG/5 ML SYR ONE
--- NOTE | 2018-04-03 16:34 | RT STRESS TEST REPORT ---
FACILITY: [facility] PATIENT NAME: FAVIAN BACON : [id number] MR: [id number] V: [id number] EXAM DATE: ORDERING PHYSICIAN: MATTHEW HAN TECHNOLOGIST: Teri Acquisition Time: 2018-04-03 14:42:45 Total Exercise Time: 00:01:00 Test Indications: Screening for CAD Medications: see nuclear med sheet Protocol: LEXISCAN Max HR: 088 BPM 59% of Pred: 149 BPM Max BP: 164/082 mmHG Max Work Load: 1.0 METS She reported no chest pain during the test. There was no ST depression. Please see the nuclear images for details. Confirmed by AMERICO VASQUEZ ([id number]) on 04/03/2018 4:34:03 PM Referred By: Overread By: AMERICO VASQUEZ
== END ==
LOC: NUC 01:32
PROVIDERS: ATTEND Internal Medicine Interventional Cardiology
DX: I25.10 Atherosclerotic heart disease of native coronary artery without angina pectoris (principal)
CPT/HCPCS: 78452; 93017; A9500; J2785